=== PATIENT | female | born 1995 ===

== ENCOUNTER 2017-12-03 06:33 | Day surgery (SDC) | payer OTHER ==
[2017-12-03] MEDS ORDERED: Dexamethasone IV* 4 MG/ML 1 ML (4 MG) ONE (06:48)
[2017-12-03] MEDS ORDERED: Famotidine IV* 10 MG/ML 2 ML (20 mg) ONE (06:48)
[2017-12-03] MEDS ORDERED: Artificial Tear OPHTH.OINT* 3.5 GM ONE (07:18)
[2017-12-03] MEDS ORDERED: Povidone Iodine 5% OPTH* 30 ML BTL ONE (07:19)
[2017-12-03] MEDS ORDERED: BSS OPTH.SOL* BTL ONE (07:19)
[2017-12-03] MEDS ORDERED: Lidocaine 1% INJ* 10 MG/ML 30 ML SDV ONE (07:19)
[2017-12-03] MEDS ORDERED: Tetracaine 0.5% OPTH.SOL 4 ML* 1 DROP BTL ONE (07:19)
[2017-12-03] MEDS ORDERED: Lidocain 1% EPI 1:100,000 * 30 ML MDV ONE (07:19)
[2017-12-03] MEDS ORDERED: Oxymetazoline 0.05% NASAL SPR* 15 ML BTL ONE (07:20)
[2017-12-03] MEDS ORDERED: Lidocaine 4% TOPICAL* 50 ML TOP.SOLN ONE (07:20)
[2017-12-03] MEDS ORDERED: Midazolam* 1 MG/ML 2 ML VIAL (2 MG) ONE (07:28)
[2017-12-03] MEDS ORDERED: fentaNYL* 50 MCG/ML 2 ML VIAL (100 MCG VIAL) IV PRN (07:33)
[2017-12-03] MEDS ORDERED: Naloxone* 0.4 MG/ML 1 ML VIAL IV PRN (07:33)
[2017-12-03] MEDS ORDERED: Bacitracin OPHTH.OINT* 3.5 GM ONE (07:33)
[2017-12-03] MEDS ORDERED: DiMENhydriNATE IV* 50 MG/ML VIAL IV PUSH PRN (07:33)
[2017-12-03] MEDS ORDERED: Phenylephrine INJ* 10 MG/ML 1 ML VIAL (10 MG) ONE (07:52)
[2017-12-03] MEDS ORDERED: Propofol* 10 MG/ML 20 ML BTL IV PUSH ONE (08:17)
[2017-12-03] MEDS ORDERED: Ketorolac INJ* 30 MG/ML 1 ML VIAL ONE (08:17)
[2017-12-03] MEDS ORDERED: Lidocaine 2% PF * 5 ML VIAL ONE (08:17)
[2017-12-03] MEDS ORDERED: Ondansetron INJ* 2 MG/ML VIAL ONE (08:17)
[2017-12-03 09:50] VITALS: BP 104/69
--- NOTE | 2017-12-04 00:46 | OP ---
DATE OF OPERATION: 12/03/17 [facility] DATE OF : [birth year] SURGEON: Randy Gotti MD WOOL PULLER: None. ANESTHESIA: General. PRE-OP DIAGNOSIS: Laceration of left upper eyelid and laceration of canaliculus of left upper eyelid. POST-OP DIAGNOSIS: Laceration of left upper eyelid and laceration of canaliculus of left upper eyelid. OPERATIVE PROCEDURE: Repair of laceration of left upper eyelid and repair of canaliculus laceration left upper eyelid. COMPLICATIONS: None. BLOOD LOSS: Minimal. DESCRIPTION OF PROCEDURE: The patient was brought to the operating room and received general anesthesia. A drop of Tetracaine was placed into her left eye. The patient was prepped and draped in the usual sterile fashion for ophthalmic surgery and attention was directed to the left eye. A pledget soaked in Afrin and lidocaine was inserted into the left nostril. Exploration of the left upper eyelid revealed a full thickness marginal laceration involving the superior canaliculus. A punctal dilator was used to dilate the inferior punctum. A worst pigtail probe was inserted into the inferior punctum and twisted through the distal nasolacrimal duct system to exit at the proximal end of the severed superior canaliculus. A punctal dilator was used to dilate the superior punctum, which was found and a # 20 IV cannula was placed into the superior punctum and through, so it was protruding from the distal severed end of the superior canaliculus. The pigtail probe end was then inserted into the plastic cannula, as a unit, the pigtail probe and plastic cannula were pulled distally through the superior distal canaliculus and out of the punctum. The plastic cannula was reviewed from the field. At this point, the pigtail probe had been successfully placed through the inferior puncta and out through the superior puncta. A 5-0 Prolene suture with no needle was threaded through the eyelet of the pigtail cannula. The pigtail cannula was then twisted retrograde and removed from the field, leaving the 5-0 Prolene threaded through the nasolacrimal distal system. A silicon stent taken from a Davis tube was cut to approximately 25 mm in length. It was threaded onto the Prolene suture. A dab of bacitracin ophthalmic ointment was placed at the edge of the tube. The Prolene suture was then pulled back through the punctum with advancing pressure on the silicon tube such that the silicon tube was threaded retrograde through the superior puncta and out of the inferior puncta. The Prolene suture was then tied with 4 knots and trimmed. The resultant doughnut of silicon tube surrounding Prolene suture was then rolled such that the knot of Prolene was placed into the common canalicular duct, nasally. At this point, attention was directed to the superior eyelid wound, which was gently retracted to reveal the intact stent. A 9- 0 Prolene was used to reapproximate the edges of the canaliculus around the stent. A single 5-0 Vicryl suture was placed in a horizontal fashion to close the orbicularis muscle. The eyelid margin was closed with a 6-0 silk suture which was left long after cutting. Two more 6-0 sutures were used to close the skin and the long ends of the initial suture were folded into the knot of the superior suture, so they would not rub on the eye. Bacitracin ointment was placed into the inner corner of the eye. The nasal pledget was removed. No intranasal surgery was necessary. At the end of the case, the eyelid margin was smooth. The sutures were intact and the silicon stent was in good position, not rubbing on the cornea. The patient was awakened uneventfully and sent to recovery room in stable condition. [id number]/[facility] #: [id number] JAYLIN
== END 2017-12-03 10:50 | disposition home or self-care (01) ==
LOC: OREAST 06:33
PROVIDERS: ATTEND Ophthalmology
DX: S01.112A Laceration without foreign body of left eyelid and periocular area, initial encounter (principal); X58.XXXA Exposure to other specified factors, initial encounter; Y92.89 Other specified places as the place of occurrence of the external cause; Y99.0 Civilian activity done for income or pay; F41.8 Other specified anxiety disorders
CPT/HCPCS: A9270-GY; J1100; J1885; J2250; J2405; J2704